=== PATIENT | female | born 1975 | race Caucasian/White ===

== ENCOUNTER 2016-11-30 12:54 | Outpatient (CLI) | payer BC | END 2016-11-30 12:55 | disposition home or self-care (01) | DX: Z12.31 Encounter for screening mammogram for malignant neoplasm of breast (principal) ==

== ENCOUNTER 2022-08-22 10:03 | Emergency (ER) | payer BC, OTHER ==
[2022-08-22 10:30] VITALS: BP 162/122
[2022-08-22 10:52] LABS: BASOPHILS # (AUTO) 0.1 10^3/uL (0.0-0.1); BASOPHILS % (AUTO) 1.1 %; EOSINOPHILS # (AUTO) 0.2 10^3/uL (0.0-0.7); EOSINOPHILS % (AUTO) 3.1 %; HCT - HEMATOCRIT 49.8 % (37.0-47.0); HGB - HEMOGLOBIN 16.1 g/dL (12.0-16.0); LYMPHOCYTES # (AUTO) 2.2 10^3/uL (1.5-3.5); LYMPHOCYTES % (AUTO) 30.2 %; MEAN CORPUSCULAR HEMOGLOBIN 30.4 pg (27.0-31.0); MEAN CORPUSCULAR HGB CONC 32.3 g/dL (32.0-36.0); MEAN PLATELET VOLUME 9.4 fL (7.9-10.8); MONOCYTES # (AUTO) 0.4 10^3/uL (0.0-1.0); MONOCYTES % (AUTO) 5.1 %; NEUTROPHILS # (AUTO) 4.5 10^3/uL (1.5-6.6); NEUTROPHILS % (AUTO) 60.2 %; PLT - PLATELET COUNT 391 10^3/uL (130-450); RED CELL DISTRIBUTION WIDTH 15.5 % (12.0-15.0); WHITE BLOOD COUNT 7.4 x10^3/uL (4.8-10.8)
[2022-08-22 11:09] LABS: ACETAMINOPHEN < 10 ug/mL (10-30); ALBUMIN/GLOBULIN RATIO 0.9 (1.0-2.2); ALKALINE PHOSPHATASE 67 IU/L (42-121); ALT ALANINE AMINOTRANSFERASE 19 IU/L (10-60); AST ASPARTATE AMINOTRANSFERASE 28 IU/L (10-42); BILIRUBIN,TOTAL 0.5 mg/dL (0.2-1.0); BUN - BLOOD UREA NITROGEN 6 mg/dL (6-20); CALCIUM 8.7 mg/dL (8.5-10.3); CARBON DIOXIDE - CO2 21 mmol/L (21-32); CHLORIDE 103 mmol/L (101-111); CREATININE 0.6 mg/dL (0.4-1.0); ETOH - ETHANOL 106.1 mg/dL; GFR - MDRD 108 (>89); GLUCOSE 90 mg/dL (70-100); LIPASE 39 U/L (22-51); POTASSIUM 3.6 mmol/L (3.5-5.0); SALICYLATE < 6.0 mg/dL; SODIUM 139 mmol/L (135-145); TOTAL PROTEIN 8.4 g/dL (6.7-8.2)
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
[2022-08-22 11:44] LABS: MUDS CUTOFF CONCENTRATIONS CUTOFF CONC BELOW:
[2022-08-22 11:48] LABS: BILIRUBIN,URINE NEGATIVE (NEGATIVE); GLUCOSE, URINE (UA) NEGATIVE (NEGATIVE); KETONES,URINE (UA) NEGATIVE (NEGATIVE); LEUKOCYTE ESTERASE, URINE NEGATIVE (NEGATIVE); NITRITE,URINE NEGATIVE (NEGATIVE); OCCULT BLOOD,URINE LARGE (NEGATIVE); PROTEIN,URINE NEGATIVE (NEGATIVE); UROBILINOGEN,URINE 0.2 (NORMAL) E.U./dL (NORMAL)
[2022-08-22 11:49] LABS: CLARITY,URINE CLEAR (CLEAR); HCG UR QUAL NEGATIVE
[2022-08-22 11:58] LABS: AMPHETAMINE SCREEN,URINE NEGATIVE (NEGATIVE); BACTERIA,URINE Rare /HPF (None Seen); BARBITURATE SCREEN,UR NEGATIVE (NEGATIVE); BENZODIAZEPINES SCREEN, URINE NEGATIVE (NEGATIVE); COCAINE SCREEN URINE NEGATIVE (NEGATIVE); METHADONE SCREEN, URINE NEGATIVE (NEGATIVE); METHAMPHETAMINES SCREEN, URINE NEGATIVE (NEGATIVE); MUCUS,URINE Few Strands; OPIATE SCREEN, URINE NEGATIVE (NEGATIVE); OXYCODONE SCREEN, URINE NEGATIVE (NEGATIVE); PROPOXYPHENE SCREEN, URINE NEGATIVE (NEGATIVE); SQUAMOUS EPITHELIAL CELL,UR MOD Squamous (<= Few); THC CANNABINOID SCREEN, URINE POSITIVE (NEGATIVE); TRICYCLIC ANTIDEPRESSANT,URINE NEGATIVE (NEGATIVE); WBC,URINE 0-3 /HPF (0-5)
== END 2022-08-22 16:08 | disposition home or self-care (01) ==
LOC: ED 10:03
DX: F41.9 Anxiety disorder, unspecified (principal); F17.200 Nicotine dependence, unspecified, uncomplicated
CPT/HCPCS: 36415; 80053; 80306; 80307; 80320; 80329; 81001; 81003; 81025; 83690; 84443; 85025; 87086; 99283; 99284

== ENCOUNTER 2023-10-26 14:51 | Emergency (ER) | payer BC, OTHER ==
[2023-10-26 15:04] VITALS: O2SAT 99
[2023-10-26 15:45] LABS: BASOPHILS # (AUTO) 0.1 10^3/uL (0.0-0.1); BASOPHILS % (AUTO) 0.7 %; EOSINOPHILS # (AUTO) 0.1 10^3/uL (0.0-0.7); EOSINOPHILS % (AUTO) 0.9 %; HCT - HEMATOCRIT 42.6 % (37.0-47.0); HGB - HEMOGLOBIN 13.8 g/dL (12.0-16.0); LYMPHOCYTES # (AUTO) 2.9 10^3/uL (1.5-3.5); LYMPHOCYTES % (AUTO) 24.2 %; MEAN CORPUSCULAR HEMOGLOBIN 29.9 pg (27.0-31.0); MEAN CORPUSCULAR HGB CONC 32.4 g/dL (32.0-36.0); MEAN CORPUSCULAR VOLUME 92.4 fL (81.0-99.0); MEAN PLATELET VOLUME 9.4 fL (7.9-10.8); MONOCYTES # (AUTO) 0.7 10^3/uL (0.0-1.0); MONOCYTES % (AUTO) 5.8 %; NEUTROPHILS % (AUTO) 68.1 %; PLT - PLATELET COUNT 384 10^3/uL (130-450); RED BLOOD COUNT 4.61 10^6/uL (4.20-5.40); RED CELL DISTRIBUTION WIDTH 15.9 % (12.0-15.0); WHITE BLOOD COUNT 11.8 x10^3/uL (4.8-10.8)
[2023-10-26 15:54] LABS: ALBUMIN/GLOBULIN RATIO 1.3 (1.0-2.2); BILIRUBIN,TOTAL 0.3 mg/dL (0.2-1.0); CALCIUM 9.7 mg/dL (8.5-10.3); CREATININE 0.6 mg/dL (0.6-1.3); POTASSIUM 3.7 mmol/L (3.5-4.5); TOTAL PROTEIN 7.2 g/dL (6.4-8.9)
--- NOTE | 2023-10-26 16:00 | ED Physician Documentation ---
PD HPI FOCAL NEURO - Stated complaint Stated Complaint: LEFT SIDE BODY NUMBNESS - Chief complaint Chief Complaint: Neuro - History obtained from History obtained from: Patient - Additional information Additional information: 48-year-old woman with history of tobacco abuse, and hyperlipidemia not on a statin due to intolerance because of fatigue and muscle aches. Starting 5 days ago she had a 30-minute episode of numbness of the face, arm, and leg on the left. That has gone away but she now has body aches and productive cough. No history of stroke or TIA. 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: Yes - Immunizations Immunizations are current?: Yes - POLST Patient has POLST: No PD ED PE NORMAL - Vitals Vital signs reviewed: Yes - General General: Alert and oriented X 3, No acute distress - HEENT HEENT: PERRL, EOMI - Neck Neck: Supple, no meningeal sign, No bony TTP, No bruit - Cardiac Cardiac: RRR, No murmur - Respiratory Respiratory: No respiratory distress - Abdomen Abdomen: Normal bowel sounds, Soft, Non tender - Derm Derm: Normal color, Warm and dry - Extremities Extremities: No edema, No calf tenderness / cord - Neuro Neuro: Alert and oriented X 3, product development specialist 2-12 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 Eye Opening: Spontaneous Motor: Obeys Commands Verbal: Oriented GCS Score: 15 NIHSS - Time Time: 15:55 - Level of Consciousness Level of consciousness: (0) Alert, Keenly responsive LOC Questions: (0) Answers both Q's correct LOC Commands: (0) Performs both correctly - Gaze Best Gaze: (0) Normal - Visual Visual: (0) No loss - Facial Palsy Facial Palsy: (0) Normal, symmetrical movement - Motor Arms (both separate) Motor Arm (right): (0) No drift Motor Arm (left): (0) No drift - Motor Legs (both separate) Motor Leg (right): (0) No drift Motor Leg (left): (0) No drift - Limb Ataxia Limb Ataxia: (0) Absent - Sensory Sensory: (0) Normal - Best Language Best Language: (0) No aphasia - Dysarthria Dysarthria: (0) Normal - Extinction and Inattention (formally neg Extinction and inattention: (0) No abnormality - Total Score/Results Total Score/Result: 0 Results - Vitals Vitals: Vital Signs - 24 hr 10/26/23 10/26/23 14:59 17:03 Temperature 36.8 C Heart Rate 108 H 69 Respiratory 20 21 Rate Blood Pressure 157/92 H 168/99 H O2 Saturation 99 99 Oxygen O2 Source Room air - EKG (time done) 1558 EKG releavant findings:: EKG personally interpreted by author of this note. Relevant findings are: Rate: Rate (enter#) (73) Rhythm: NSR [place]: Normal Intervals: Normal MS QRS: Normal Ischemia: Normal ST segments - Labs Labs: Laboratory Tests 10/26/23 10/26/23 10/26/23 15:35 15:35 15:35 WBC 11.8 H RBC 4.61 Hgb 13.8 Hct 42.6 MCV 92.4 MCH 29.9 MCHC 32.4 RDW 15.9 H Plt Count 384 MPV 9.4 Neut # (Auto) 8.0 H Lymph # (Auto) 2.9 [place] # (Auto) 0.7 Eos # (Auto) 0.1 Baso # (Auto) 0.1 Absolute Nucleated RBC 0.00 Nucleated RBC % 0.0 PT 12.0 INR 1.1 Sodium 136 Potassium 3.7 Chloride 105 Carbon Dioxide 24 Anion Gap 7.0 BUN 9 Creatinine 0.6 Estimated GFR (MDRD) 107 Glucose 99 Calcium 9.7 Total Bilirubin 0.3 AST 10 ALT 7 L Alkaline Phosphatase 58 Total Protein 7.2 Albumin 4.0 Globulin 3.2 Albumin/Globulin Ratio 1.3 Nasal Adenovirus (PCR) Nasal B. parapertussis DNA (PCR) Nasal Coronavir 229E PCR Nasal Coronavir HKU1 PCR Nasal Coronavir NL63 PCR Nasal Coronavir OC43 PCR Nasal Enterovir/Rhinovir PCR Nasal Influenza B PCR Nasal Influenza A PCR Nasal Parainfluen 1 PCR Nasal Parainfluen 2 PCR Nasal Parainfluen 3 PCR Nasal Parainfluen 4 PCR Nasal RSV (PCR) Nasal B.pertussis DNA PCR Nasal C.pneumoniae (PCR) Eric Human Metapneumo PCR Nasal M.pneumoniae (PCR) Nasal SARS-CoV-2 (PCR) 10/26/23 16:10 WBC RBC Hgb Hct MCV MCH MCHC RDW Plt Count MPV Neut # (Auto) Lymph # (Auto) [place] # (Auto) Eos # (Auto) Baso # (Auto) Absolute Nucleated RBC Nucleated RBC % PT INR Sodium Potassium Chloride Carbon Dioxide Anion Gap BUN Creatinine Estimated GFR (MDRD) Glucose Calcium Total Bilirubin AST ALT Alkaline Phosphatase Total Protein Albumin Globulin Albumin/Globulin Ratio Nasal Adenovirus (PCR) NOT DETECTED Nasal B. parapertussis DNA (PCR) NOT DETECTED Nasal Coronavir 229E PCR NOT DETECTED Nasal Coronavir HKU1 PCR NOT DETECTED Nasal Coronavir NL63 PCR NOT DETECTED Nasal Coronavir OC43 PCR NOT DETECTED Nasal Enterovir/Rhinovir PCR NOT DETECTED Nasal Influenza B PCR NOT DETECTED Nasal Influenza A PCR NOT DETECTED Nasal Parainfluen 1 PCR NOT DETECTED Nasal Parainfluen 2 PCR NOT DETECTED Nasal Parainfluen 3 PCR NOT DETECTED Nasal Parainfluen 4 PCR NOT DETECTED Nasal RSV (PCR) NOT DETECTED Nasal B.pertussis DNA PCR NOT DETECTED Nasal C.pneumoniae (PCR) NOT DETECTED Eric Human Metapneumo PCR NOT DETECTED Nasal M.pneumoniae (PCR) NOT DETECTED Nasal SARS-CoV-2 (PCR) NOT DETECTED - Rads (name of study) Single view chest x-ray showing mild peribronchial thickening consistent with viral infection or bronchitis. Relevant Findings:: Final report received, EMP independent interpretation of test Regular/noncontrast head CT negative/normal Relevant Findings:: Final report received, EMP independent interpretation of test CT angiography of the head shows diminutive table [place] of [place] without specific vascular finding otherwise. Relevant Findings:: Final report received, EMP independent interpretation of test PD Medical Decision Making - ED course ED course: 48-year-old woman had TIA symptoms 5 days ago. Her ABCD2 score is 2.. Now has a flulike syndrome. No findings on head CT or specific findings on angiography CT. CBC shows mild n onspecific leukocytosis, INR normal, CMP normal, [employer] respiratory panel normal/negative, chest x-ray showing viral pattern. She was asymptomatic here but did have elevated blood pressures. We discussed at length risk factor modification including baby aspirin daily, blood pressure and cholesterol control as well as smoking cessation and diet and exercise. Departure - Departure Disposition: 01 Home, Self Care Clinical Impression: TIA (transient ischemic attack) Condition: Good Record reviewed to determine appropriate education?: Yes Instructions: ED Transient Ischemic Attack, ED Smoking Cessation Prescriptions: Rosuvastatin Calcium 20 mg PO DAILY #90 tab Lisinopril [Zestril] 10 mg PO DAILY #90 tablet Comments: You were seen today for a TIA superimposed on probably a viral respiratory infection. Your flu COVID test was negative, head CT and angiography CTs demonstrating kind of small blood vessels in your brain, but nothing blocked. Is very important to quit smoking, take a baby aspirin a day, and I am starting something for blood pressure as well. Diet and exercise are also very important. The cholesterol medication I am putting you on generally is thought to have lesser side effects than some of its relatives, but still will possibly have some of the side effects you had with the other cholesterol medication. Call your doctor to arrange a follow-up appointment, make the next available appointment. In the interim, return anytime if worse or if new symptoms develop. Forms: PCP List
[2023-10-26 16:04] LABS: INR 1.1 (0.8-1.2)
[2023-10-26] MEDS ORDERED: iohexoL-300 100 ML VIAL ONE (16:16)
--- NOTE | 2023-10-26 16:27 | XRAY Report ---
PROCEDURE: Chest 1V INDICATIONS: cough TECHNIQUE: One view of the chest was acquired. COMPARISON: None. FINDINGS: Surgical changes and devices: None. Lungs and pleura: No dense consolidation or pleural effusion. Mild peribronchial thickening is seen. Mediastinum: Normal heart size. Bones and chest wall: No suspicious bony lesions. Overlying soft tissues appear unremarkable. IMPRESSION: Limited single view portable radiograph. Mild peribronchial thickening may be seen with viral infecti on or bronchitis. No dense airspace disease or pleural effusion. Reviewed by: Tony Kyle MD on 10/26/2023 4:26 PM PDT Approved by: Tony Kyle MD on 10/26/2023 4:26 PM PDT Station ID: [id number]
[2023-10-26 17:31] LABS: B. PARAPERTUSSIS- RESP PCR PAN NOT DETECTED; B. PERTUSSIS- RESP PCR PANEL NOT DETECTED; C. PNEUMONIAE- RESP PCR PANEL NOT DETECTED; CORONAVIRUS 229E-RESP PCR NOT DETECTED; CORONAVIRUS HKU1-RESP PCR NOT DETECTED; CORONAVIRUS NL63-RESP PCR NOT DETECTED; CORONAVIRUS OC43-RESP PCR NOT DETECTED; HUMAN METAPNEUMOVIRUS NOT DETECTED; INFLUENZA A- RESP PCR PANEL NOT DETECTED; INFLUENZA B - RESP PCR PANEL NOT DETECTED; M. PNEUMONIAE- RESP PCR PANEL NOT DETECTED; PARAINFLUENZA VIRUS 1 NOT DETECTED; PARAINFLUENZA VIRUS 2 NOT DETECTED; PARAINFLUENZA VIRUS 3 NOT DETECTED; PARAINFLUENZA VIRUS 4 NOT DETECTED; RHINOVIRUS/ENTEROVIRUS NOT DETECTED; RSV- RESP PCR PANEL NOT DETECTED; SARS-CoV-2 -RESP PCR PANEL NOT DETECTED
[2023-10-26] MEDS: ASPIRIN CHEW 81 MG TABLET PO STA (17:35)
[2023-10-26] MEDS: iohexoL-300 100 ML VIAL IVP ONE (17:40)
--- NOTE | 2023-10-26 17:41 | CT Report ---
PROCEDURE: Head WO INDICATIONS: tia sx TECHNIQUE: Noncontrast 4.5 mm thick angled axial sections acquired from the foramen magnum to the vertex. For r adiation dose reduction, the following was used: automated exposure control, adjustment of mA and/or kV according to patient size. COMPARISON: None. FINDINGS: Image quality: Excellent. CSF spaces: Basal cisterns are patent. No extra-axial fluid collections. Ventricles are normal in size and shape. Brain: No midline shift. No intracranial masses or hemorrhage. Rayo-white matter interface is norm al. Skull and face: Calvarium and visualized facial bones are intact, without suspicious lesions. Sinuses: Visualized sinuses and mastoids are clear. IMPRESSION: No acute intracranial pathology. Reviewed by: Gypsy Shafer MD on 10/26/2023 5:40 PM PDT Approved by: Gypsy Shafer MD on 10/26/2023 5:40 PM PDT Station ID: [id number]
--- NOTE | 2023-10-26 17:45 | CT Report ---
PROCEDURE: Angio Head/Neck INDICATIONS: tia sx TECHNIQUE: After the administration of intravenous contrast, 1 mm thick sections acquired from the aortic arch t hrough the [place] of [place]. 3-dimensional hwbkhrd-phawpfvtw-xqplksmaxl (MIP) and/or volume renderin g reformats were acquired of the central intracranial vasculature and neck separately. For radiation dose reduction, the following was used: automated exposure control, adjustment of mA and/or kV acco rding to patient size. COMPARISON: CT brain 10/26/2023 FINDINGS: Image quality: Diagnostic. HEAD CT: Please see separately dictated CT brain report of 10/26/2023. HEAD CT ANGIOGRAPHY: There is an overall appearance of diffusely diminutive vasculature are within the intracranial circul ation without focal area of stenosis. Anterior circulation: Intracranial internal carotid arteries are normal in size and flow. The flow within the paired anterior cerebral arteries is normal and symmetric. The flow within the middle cer ebral arteries is normal and symmetric. The anterior communicating artery is seen. No aneurysms are seen. Posterior circulation: Visualized portions of the vertebral arteries demonstrate normal caliber, and join to form a normal appearing basilar artery. Flow within the posterior cerebral arteries is norm al and symmetric. No aneurysms are seen. NECK CT ANGIOGRAPHY: Carotid system: The great vessels demonstrate a conventional anatomy as they arise from the aortic a rch. The origins of the common carotid arteries appear patent. The common carotid arteries demonstr ate normal caliber and courses. The bifurcation regions are both widely patent. The internal caroti d arteries demonstrate normal calibers and courses. Posterior circulation: The origins of the vertebral arteries both appear widely patent. The more aguirre perior extracranial portions of both vertebral arteries also demonstrate normal courses and calibers. They join to form a normal appearing basilar artery. Soft tissues: Visualized neck soft tissues demonstrate no suspicious abnormalities. Bones: No suspicious bony lesions. Visualized cervical spine appears normally aligned. IMPRESSION: Overall diffuse appearance of diminutive intracranial [place] of [place] vasculature without focal area of hemodynamically significant stenosis. There are no areas of hemodynamically significant stenosis, vascular occlusion or aneurysmal dilation within the neck vasculature. The estimate of stenosis included in the report of the imaging study was calculated using the NASCET method Reviewed by: Gypsy Shafer MD on 10/26/2023 5:43 PM PDT Approved by: Gypsy Shafer MD on 10/26/2023 5:43 PM PDT Station ID: [id number]
[2023-10-26 17:47] VITALS: BP 168/99
== END 2023-10-26 18:35 | disposition home or self-care (01) ==
LOC: ED 14:51
DX: G45.9 Transient cerebral ischemic attack, unspecified (principal); I10 Essential (primary) hypertension; Z79.899 Other long term (current) drug therapy; F17.200 Nicotine dependence, unspecified, uncomplicated
CPT/HCPCS: 36415; 70450; 70496; 70498; 71045; 80053; 85025; 85610; 87633; 93005; 99284; A9270; Q9967

== ENCOUNTER 2023-11-07 12:59 | Emergency (ER) | payer SELFPAY ==
--- NOTE | 2023-11-07 13:28 | ED Physician Documentation ---
PD HPI CHEST PAIN - Stated complaint Stated Complaint: CHEST TIGHTNESS,SOA,NAUSEA - Chief complaint Chief Complaint: Cardiac - History obtained from History obtained from: Patient - Additional information Additional information: 48-year-old with history of hypercholesterolemia and tobacco abuse. I saw her about 10 days ago for syndrome consistent with TIA negative workup. Started on lisinopril and rosuvastatin and aspirin. She is tolerating the rosuvastatin okay, previously had not tolerated statins due to myalgias. Today she has had intermittent nonexertional chest tightness that she thinks is related to anxiety. She is short of breath with it. There is no exertional component. No radiation to the back. No pedal edema or calf pain. She is pain-free currently. 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 Psych: Depression, Anxiety Musculoskeletal: None Derm: None Other Past Medical History: PCOS - Past Surgical History Past Surgical History: Yes /ERISA ATTORNEY: section - Present Medications Home Medications: Ambulatory Orders Medication Instructions Recorded Confirmed Lisinopril [Zestril] 10 mg PO DAILY #90 tablet 10/26/23 11/07/23 Rosuvastatin Calcium 20 mg PO DAILY #90 tab 10/26/23 11/07/23 hydrOXYzine PAMOATE [Vistaril] 25 mg PO Q6H PRN #20 tab 11/07/23 - Allergies Allergies/Adverse Reactions: Allergies Allergy/AdvReac Type Severity Reaction Status Date / Time No Known Drug Allergies Allergy Verified 11/07/23 13:05 - Social History Does the pt smoke?: Yes Smoking Status: Current every day smoker Does the pt drink ETOH?: Yes Does the pt have substance abuse?: Yes Substance Use and Type: Marijuana - Immunizations Immunizations are current?: Yes - POLST Patient has POLST: No PD ED PE NORMAL - Vitals Vital signs reviewed: Yes - General General: Alert and oriented X 3, Other (Despite being pain-free currently she is tearful and anxious and hypervigilant.) - Neck Neck: Supple, no meningeal sign, No bony TTP - Cardiac Cardiac: RRR, No murmur - Respiratory Respiratory: No respiratory distress, Clear bilaterally - Abdomen Abdomen: Non tender - Back Back: No CVA TTP, No spinal TTP - Derm Derm: Normal color, Warm and dry - Extremities Extremities: No edema, No calf tenderness / cord - Neuro Neuro: Alert and oriented X 3, Normal speech Results - Vitals Vitals: Vital Signs - 24 hr 11/07/23 11/07/23 13:06 13:49 Temperature 36.7 C Heart Rate 102 H 87 Respiratory 24 20 Rate Blood Pressure 143/111 H 154/96 H O2 Saturation 100 99 Oxygen O2 Source Room air - EKG (time done) 1314 EKG releavant findings:: EKG personally interpreted by author of this note. Relevant findings are: Rate: Rate (enter#) (74) Rhythm: NSR [place]: Normal Intervals: Normal [place] QRS: Normal Ischemia: Normal ST segments. No: ST elevation c/w ischemia, ST depression Computer interpretation: Agree with computer - Labs Labs: Laboratory Tests 11/07/23 11/07/23 13:24 13:24 WBC 12.4 H RBC 5.00 Hgb 14.9 Hct 46.3 MCV 92.6 MCH 29.8 MCHC 32.2 RDW 15.1 H Plt Count 620 H MPV 9.2 Neut # (Auto) 9.1 H Lymph # (Auto) 2.4 [place] # (Auto) 0.7 Eos # (Auto) 0.1 Baso # (Auto) 0.1 Absolute Nucleated RBC 0.00 Nucleated RBC % 0.0 Sodium 132 L Potassium 4.0 Chloride 104 Carbon Dioxide 21 Anion Gap 7.0 BUN 10 Creatinine 0.7 Estimated GFR (MDRD) 90 Glucose 134 H Calcium 10.0 Total Bilirubin 0.3 AST 12 ALT 8 L Alkaline Phosphatase 67 Troponin I High Sens 2.7 Total Protein 7.9 Albumin 4.3 Globulin 3.6 Albumin/Globulin Ratio 1.2 Lipase 39 PD Medical Decision Making - ED course ED course: 48-year-old woman with intermittent nonexertional chest pain today. The intermittent nature and lack of pedal edema or calf pain would suggest against PE. No radiation to the back or widened mediastinum on x-ray to suggest dissection. She is quite anxious. Did not tolerate lorazepam in the past but was agreeable to some hydroxyzine. Heart score is 3 suggesting outpatient management is appropriate. Departure - Departure Disposition: 01 Home, Self Care Clinical Impression: Chest pain Condition: Good Record reviewed to determine appropriate education?: Yes Instructions: ED Chest Pain Atypical Unkn Cause Prescriptions: hydrOXYzine PAMOATE [Vistaril] 25 mg PO Q6H PRN #20 tab PRN Reason: Anxiety Comments: Your workup today was reassuring, there is no evidence of heart damage and your chest x-ray looks fine. I would recommend you talk with your doctor about 2 things: 1. With everything that is been having recently it is probably reasonable for you to have a stress test. 2. With uncontrolled anxiety and some depression may be reasonable for you to start an antidepressant. Call your doctor to arrange a follow-up appointment, make the next available appointment. In the interim, return anytime if worse or if new symptoms develop. Forms: PCP List
[2023-11-07 13:33] LABS: BASOPHILS # (AUTO) 0.1 10^3/uL (0.0-0.1); BASOPHILS % (AUTO) 1.1 %; EOSINOPHILS # (AUTO) 0.1 10^3/uL (0.0-0.7); EOSINOPHILS % (AUTO) 0.8 %; HCT - HEMATOCRIT 46.3 % (37.0-47.0); HGB - HEMOGLOBIN 14.9 g/dL (12.0-16.0); LYMPHOCYTES # (AUTO) 2.4 10^3/uL (1.5-3.5); LYMPHOCYTES % (AUTO) 18.9 %; MEAN CORPUSCULAR HEMOGLOBIN 29.8 pg (27.0-31.0); MEAN CORPUSCULAR HGB CONC 32.2 g/dL (32.0-36.0); MEAN CORPUSCULAR VOLUME 92.6 fL (81.0-99.0); MEAN PLATELET VOLUME 9.2 fL (7.9-10.8); MONOCYTES # (AUTO) 0.7 10^3/uL (0.0-1.0); MONOCYTES % (AUTO) 5.8 %; NEUTROPHILS # (AUTO) 9.1 10^3/uL (1.5-6.6); NEUTROPHILS % (AUTO) 73.1 %; PLT - PLATELET COUNT 620 10^3/uL (130-450); RED CELL DISTRIBUTION WIDTH 15.1 % (12.0-15.0); WHITE BLOOD COUNT 12.4 x10^3/uL (4.8-10.8)
--- NOTE | 2023-11-07 13:35 | XRAY Report ---
PROCEDURE: Chest 1V INDICATIONS: Chest pain TECHNIQUE: One view of the chest was acquired. COMPARISON: Chest x-ray, 10/26/2023. FINDINGS: Surgical changes and devices: None. Lungs and pleura: No pleural effusions or pneumothorax. Lungs are clear. Mediastinum: Mediastinal contours appear normal. Heart size is normal. Bones and chest wall: No suspicious bony lesions. Overlying soft tissues appear unremarkable. IMPRESSION: No acute cardiopulmonary process. Reviewed by: Josefina Goodman MD on 11/07/2023 1:34 PM PDT Approved by: Josefina Goodman MD on 11/07/2023 1:34 PM PDT Station ID: [id number]
[2023-11-07] MEDS: hydrOXYzine PAMOATE 25 MG CAPSULE PO STA (13:41)
[2023-11-07 13:47] LABS: ALBUMIN 4.3 g/dL (3.2-5.5); ALBUMIN/GLOBULIN RATIO 1.2 (1.0-2.2); BILIRUBIN,TOTAL 0.3 mg/dL (0.2-1.0); CREATININE 0.7 mg/dL (0.6-1.3); TOTAL PROTEIN 7.9 g/dL (6.4-8.9)
[2023-11-07 13:53] VITALS: BP 154/96; O2SAT 99
[2023-11-07 13:53] LABS: TROPONIN I HIGH SENSITIVITY 2.7 ng/L (2.3-14.8)
== END 2023-11-07 14:32 | disposition home or self-care (01) ==
LOC: ED 12:59
DX: R07.9 Chest pain, unspecified (principal); I10 Essential (primary) hypertension; E78.00 Pure hypercholesterolemia, unspecified; Z86.73 Personal history of transient ischemic attack (TIA), and cerebral infarction without residual deficits; F17.200 Nicotine dependence, unspecified, uncomplicated; F41.9 Anxiety disorder, unspecified
CPT/HCPCS: 36415; 71045; 80053; 83690; 84484; 85025; 93005; 99283; 99284; A9270

== ENCOUNTER 2024-03-15 11:34 | Outpatient (CLI) | payer SELFPAY | END 2024-03-15 11:35 | disposition critical access hospital (66) | LOC: EMS 11:34 | DX: Z04.6 Encounter for general psychiatric examination, requested by authority (principal); R45.851 Suicidal ideations; Z78.1 Physical restraint status | CPT/HCPCS: A0425; A0429 ==

== ENCOUNTER 2024-03-15 11:57 | Emergency (ER) | payer SELFPAY ==
[2024-03-15 12:52] LABS: BASOPHILS # (AUTO) 0.1 10^3/uL (0.0-0.1); BASOPHILS % (AUTO) 0.7 %; EOSINOPHILS # (AUTO) 0.1 10^3/uL (0.0-0.7); EOSINOPHILS % (AUTO) 1.5 %; HCT - HEMATOCRIT 41.8 % (37.0-47.0); HGB - HEMOGLOBIN 13.7 g/dL (12.0-16.0); LYMPHOCYTES # (AUTO) 2.3 10^3/uL (1.5-3.5); LYMPHOCYTES % (AUTO) 25.1 %; MEAN CORPUSCULAR HEMOGLOBIN 29.6 pg (27.0-31.0); MEAN CORPUSCULAR HGB CONC 32.8 g/dL (32.0-36.0); MEAN CORPUSCULAR VOLUME 90.3 fL (81.0-99.0); MEAN PLATELET VOLUME 9.3 fL (7.9-10.8); MONOCYTES # (AUTO) 0.6 10^3/uL (0.0-1.0); NEUTROPHILS # (AUTO) 6.1 10^3/uL (1.5-6.6); NEUTROPHILS % (AUTO) 66.5 %; PLT - PLATELET COUNT 465 10^3/uL (130-450); RED BLOOD COUNT 4.63 10^6/uL (4.20-5.40); RED CELL DISTRIBUTION WIDTH 13.9 % (12.0-15.0); WHITE BLOOD COUNT 9.1 x10^3/uL (4.8-10.8)
[2024-03-15 13:06] LABS: ACETAMINOPHEN 0.2 ug/mL; ALBUMIN 4.4 g/dL (3.2-5.5); ALBUMIN/GLOBULIN RATIO 1.4 (1.0-2.2); ALKALINE PHOSPHATASE 59 IU/L (42-121); ALT ALANINE AMINOTRANSFERASE 14 IU/L (10-60); AST ASPARTATE AMINOTRANSFERASE 20 IU/L (10-42); BILIRUBIN,TOTAL 0.3 mg/dL (0.2-1.0); BUN - BLOOD UREA NITROGEN 10 mg/dL (6-20); CALCIUM 9.3 mg/dL (8.5-10.3); CARBON DIOXIDE - CO2 23 mmol/L (21-32); CHLORIDE 106 mmol/L (101-111); CK- CREATINE KINASE 465 IU/L (30-223); CREATININE 0.6 mg/dL (0.6-1.3); ETOH - ETHANOL 123.6 mg/dL; GFR - MDRD 107 (>89); GLUCOSE 98 mg/dL (74-104); LIPASE 27 U/L (11-82); MAGNESIUM 1.5 mg/dL (1.7-2.3); POTASSIUM 3.8 mmol/L (3.5-4.5); SODIUM 141 mmol/L (135-145); TOTAL PROTEIN 7.5 g/dL (6.4-8.9)
[2024-03-15 13:09] LABS: SALICYLATE < 1.5 mg/dL
[2024-03-15] MEDS: ACETAMINOPHEN 500 MG TABLET PO STA (13:10)
[2024-03-15 13:22] LABS: THYROID STIMULATING HORMONE 1.33 uIU/mL (0.34-5.60)
[2024-03-15 13:54] LABS: BILIRUBIN,URINE NEGATIVE (NEGATIVE); GLUCOSE, URINE (UA) NEGATIVE (NEGATIVE); KETONES,URINE (UA) 15 mg/dL (NEGATIVE); LEUKOCYTE ESTERASE, URINE NEGATIVE (NEGATIVE); NITRITE,URINE NEGATIVE (NEGATIVE); OCCULT BLOOD,URINE TRACE-INTA (NEGATIVE); PROTEIN,URINE TRACE mg/dL (NEGATIVE); UROBILINOGEN,URINE 0.2 (NORMAL) E.U./dL (NORMAL)
[2024-03-15 14:04] LABS: AMPHETAMINE SCREEN,URINE NEGATIVE (NEGATIVE); BARBITURATE SCREEN,UR NEGATIVE (NEGATIVE); BENZODIAZEPINES SCREEN, URINE NEGATIVE (NEGATIVE); BUPRENORPHINE SCREEN, URINE NEGATIVE (NEGATIVE); COCAINE SCREEN URINE NEGATIVE (NEGATIVE); METHADONE SCREEN, URINE NEGATIVE (NEGATIVE); METHAMPHETAMINES SCREEN, URINE NEGATIVE (NEGATIVE); OPIATE SCREEN, URINE NEGATIVE (NEGATIVE); OXYCODONE SCREEN, URINE NEGATIVE (NEGATIVE); THC CANNABINOID SCREEN, URINE POSITIVE (NEGATIVE); TRICYCLIC ANTIDEPRESSANT,URINE NEGATIVE (NEGATIVE)
[2024-03-15 14:05] LABS: CLARITY,URINE CLEAR (CLEAR)
[2024-03-15 14:06] LABS: HCG UR QUAL NEGATIVE
--- NOTE | 2024-03-15 14:40 | ED Physician Documentation ---
PD HPI MHE - Stated complaint Stated Complaint: YURY/ETOH - Chief complaint Chief Complaint: MHE - History obtained from History obtained from: Patient - Additional information Additional information: 48-year-old woman with history of hypertension, hypercholesterolemia, tobacco use and alcoholism. She is brought in on an YURY from [employer] for statements about [place] to [place] the [place] and she is actively suicidal which she admits to me. She has no physical complaints. 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 - Present Medications Home Medications: Ambulatory Orders Medication Instructions Recorded Confirmed Lisinopril [Zestril] 10 mg PO DAILY #90 tablet 10/26/23 11/07/23 Rosuvastatin Calcium 20 mg PO DAILY #90 tab 10/26/23 11/07/23 hydrOXYzine PAMOATE [Vistaril] 25 mg PO Q6H PRN #20 tab 11/07/23 - Allergies Allergies/Adverse Reactions: Allergies Allergy/AdvReac Type Severity Reaction Status Date / Time No Known Drug Allergies Allergy Verified 03/15/24 12:34 - Social History Does the pt smoke?: Yes Smoking Status: Current every day smoker Does the pt drink ETOH?: Yes Does the pt have substance abuse?: Yes - Immunizations Immunizations are current?: Yes - POLST Patient has POLST: No PD ED PE NORMAL - Vitals Vital signs reviewed: Yes - General General: Alert and oriented X 3, No acute distress - HEENT HEENT: PERRL, EOMI - Neck Neck: Supple, no meningeal sign, No bony TTP - Cardiac Cardiac: RRR, No murmur - Respiratory Respiratory: No respiratory distress, Clear bilaterally - Abdomen Abdomen: Non tender - Back Back: No CVA TTP, No spinal TTP - Derm Derm: Normal color, Warm and dry - Extremities Extremities: No edema, No calf tenderness / cord - Neuro Neuro: Alert and oriented X 3, Normal speech Eye Opening: Spontaneous Motor: Obeys Commands Verbal: Oriented GCS Score: 15 Results - Vitals Vitals: Vital Signs - 24 hr 03/15/24 03/15/24 11:59 18:43 Temperature 36.4 C L Heart Rate 88 Respiratory 15 16 Rate Blood Pressure 190/98 H 172/81 H O2 Saturation 99 97 Oxygen O2 Source Room air - Labs Labs: Laboratory Tests 03/15/24 03/15/24 03/15/24 12:47 12:47 13:30 WBC 9.1 RBC 4.63 Hgb 13.7 Hct 41.8 MCV 90.3 MCH 29.6 MCHC 32.8 RDW 13.9 Plt Count 465 H MPV 9.3 Neut # (Auto) 6.1 Lymph # (Auto) 2.3 [place] # (Auto) 0.6 Eos # (Auto) 0.1 Baso # (Auto) 0.1 Absolute Nucleated RBC 0.00 Nucleated RBC % 0.0 Sodium 141 Potassium 3.8 Chloride 106 Carbon Dioxide 23 Anion Gap 12.0 BUN 10 Creatinine 0.6 Estimated GFR (MDRD) 107 Glucose 98 Calcium 9.3 Magnesium 1.5 L Total Bilirubin 0.3 AST 20 ALT 14 Alkaline Phosphatase 59 Total Creatine Kinase 465 H Total Protein 7.5 Albumin 4.4 Globulin 3.1 Albumin/Globulin Ratio 1.4 Lipase 27 TSH 1.33 Urine Color DARK YELLOW Urine Clarity CLEAR Urine pH 6.0 Ur Specific [place] 1.025 Urine Protein TRACE Urine Glucose (UA) NEGATIVE Urine Ketones 15 H Urine Occult Blood TRACE-INTA Urine Nitrite NEGATIVE Urine Bilirubin NEGATIVE Urine Urobilinogen 0.2 (NORMAL) Ur Leukocyte Esterase NEGATIVE Ur Microscopic Review NOT INDICATED Urine Culture Comments NOT INDICATED Urine HCG, Qual NEGATIVE Salicylates < 1.5 Urine Opiates Screen NEGATIVE Ur Buprenorphine Scrn NEGATIVE Ur Oxycodone Screen NEGATIVE Urine Methadone Screen NEGATIVE Acetaminophen 0.2 Ur Barbiturates Screen NEGATIVE Ur Tricyclics Screen NEGATIVE Ur Phencyclidine Scrn NEGATIVE Ur Amphetamine Screen NEGATIVE U Methamphetamines Scrn NEGATIVE U Benzodiazepines Scrn NEGATIVE Urine Cocaine Screen NEGATIVE U Cannabinoids Screen POSITIVE H Ur Drug Screen Comment CUTOFF CONC BELOW: Ethyl Alcohol 123.6 SARS-CoV-2 (PCR) 03/15/24 03/15/24 13:30 18:24 WBC RBC Hgb Hct MCV MCH MCHC RDW Plt Count MPV Neut # (Auto) Lymph # (Auto) [place] # (Auto) Eos # (Auto) Baso # (Auto) Absolute Nucleated RBC Nucleated RBC % Sodium Potassium Chloride Carbon Dioxide Anion Gap BUN Creatinine Estimated GFR (MDRD) Glucose Calcium Magnesium Total Bilirubin AST ALT Alkaline Phosphatase Total Creatine Kinase Total Protein Albumin Globulin Albumin/Globulin Ratio Lipase TSH Urine Color Urine Clarity Urine pH Ur Specific [place] Urine Protein Urine Glucose (UA) Urine Ketones Urine Occult Blood Urine Nitrite Urine Bilirubin Urine Urobilinogen Ur Leukocyte Esterase Ur Microscopic Review Urine Culture Comments Urine HCG, Qual Salicylates Urine Opiates Screen Ur Buprenorphine Scrn Ur Oxycodone Screen Urine Methadone Screen Acetaminophen Ur Barbiturates Screen Ur Tricyclics Screen Ur Phencyclidine Scrn Ur Amphetamine Screen U Methamphetamines Scrn U Benzodiazepines Scrn Urine Cocaine Screen U Cannabinoids Screen Ur Drug Screen Comment Ethyl Alcohol < 10.0 SARS-CoV-2 (PCR) NOT DETECTED PD Medical Decision Making - ED course ED course: 49-year-old woman presents with alcoholism and suicidal ideation with plan. She is not particularly cooperative and is not voluntary. Workup in the emergency department demonstrates normal CBC, CMP, urinalysis, negative test. Toxicology testing was positive for blood alcohol of 123 and cannabis. COVID testing was negative. Although her blood alcohol was 123 she is clinically sober and appropriate for DCR evaluation. She is medically clear for DCR evaluation. She was seen by the DCR and arrangements were made for transfer to [place]. She is stable for transport. She did get anxious here in was agreeable to oral Ativan and nicotine patch. Departure - Departure Disposition: 65 Psych Hosp/Unit DC/Xfer Clinical Impression: Suicidal ideation, Alcoholic intoxication Condition: Stable Forms: PCP List
[2024-03-15] MEDS: LORazepam 1 MG TABLET PO STA ×2 (17:24→18:30)
[2024-03-15] MEDS: NICOTINE 21 MG PATCH TOP STA (18:30)
[2024-03-15 18:51] VITALS: BP 172/81; O2SAT 97
== END 2024-03-15 23:54 ==
LOC: ED 11:57 → MERGE 11:57 → ED 23:54
DX: R45.851 Suicidal ideations (principal); F10.129 Alcohol abuse with intoxication, unspecified; Y90.6 Blood alcohol level of 120-199 mg/100 ml; I10 Essential (primary) hypertension; E78.00 Pure hypercholesterolemia, unspecified; F17.210 Nicotine dependence, cigarettes, uncomplicated
CPT/HCPCS: 36415; 80053; 80143; 80179; 80306; 81003; 81025; 82077; 82550; 83690; 83735; 84443; 85025; 87635; 99284; 99285; A9270; J8499; 81001; 87086